=== PATIENT | female | born 1980 | race Caucasian/White ===

== ENCOUNTER 2017-06-25 21:07 | Emergency (ER) | payer OTHER ==
[~2017-06-25] VITALS: Ht 167.6 cm; Wt 94.3 kg
[~2017-06-25 21:07] MED LIST: AMOXICILLIN500 MG PO; TRAMADOL HCL50 MG PO
== END 2017-06-25 23:55 | disposition home or self-care (01) ==
LOC: ED 21:07
DX: S93.402A Sprain of unspecified ligament of left ankle, initial encounter (principal); S40.022A Contusion of left upper arm, initial encounter; S40.021A Contusion of right upper arm, initial encounter; V49.49XA Driver injured in collision with other motor vehicles in traffic accident, initial encounter
CPT/HCPCS: 36415; 73610; 80053; 82150; 82550; 83690; 85025; 86850; 86900; 86901; 99283; G0480

== ENCOUNTER 2020-05-04 20:54 | Emergency (ER) | payer OTHER ==
[~2020-05-04] VITALS: Ht 167.6 cm; Wt 102.0 kg
[2020-05-04] MEDS ORDERED: VALIUM5 MG PO (23:23)
== END 2020-05-04 23:51 | disposition home or self-care (01) ==
LOC: ED 20:54
DX: S06.0X0A Concussion without loss of consciousness, initial encounter (principal); M62.830 Muscle spasm of back; M25.551 Pain in right hip; M25.561 Pain in right knee; M25.562 Pain in left knee; R51.9 Headache, unspecified; V74.5XXA Driver of bus injured in collision with heavy transport vehicle or bus in traffic accident, initial encounter
CPT/HCPCS: 71045; 72170; 80048; 80076; 82977; 83615; 83690; 84484; 84703; 85025; 99284-25; A9270

== ENCOUNTER 2021-02-12 12:39 | Emergency (ER) | payer OTHER ==
[~2021-02-12] VITALS: Ht 167.6 cm; Wt 101.6 kg
[~2021-02-12 12:39] MED LIST changes: +VALIUM5 MG PO
[2021-02-12] MEDS ORDERED: PENICILLIN V P500 MG PO (14:22)
== END 2021-02-12 14:53 | disposition home or self-care (01) ==
LOC: ED 12:39
DX: K04.7 Periapical abscess without sinus (principal)
CPT/HCPCS: 99282